=== PATIENT | male | born 1965 | race African-American/Black ===

== ENCOUNTER 2021-09-17 21:22 | Emergency (ER) | payer MEDICAID ==
[~2021-09-17] VITALS: Ht 185.4 cm; Wt 88.3 kg
[2021-09-17 21:27] VITALS: BP 115/76
== END 2021-09-18 01:11 | disposition left against medical advice (07) ==
LOC: ER 21:22
DX: M25.552 Pain in left hip (principal)
CPT/HCPCS: 99281